=== PATIENT | male | born 1935 | race Caucasian/White ===

== ENCOUNTER 2016-03-04 10:06 | Day surgery (SDC) | payer BC, MEDICARE, OTHER ==
[2016-02-22 09:23] VITALS: BMI 32.0
--- NOTE | 2016-02-22 09:58 | PAT Medication Instructions ---
Service Date Feb 22, 2016. Current Home Medication List Acetaminophen (Tylenol), 1,000 MG PO PRN Aflibercept (Eylea), 1 DOSE INH Q12WK Albuterol (Ventolin), 2 PUFFS INH QID PRN for SOB/Wheezing Azelastine Hcl-Fluticasone Pro (Dymista), 1 SPRY KENYA BID Calcium/Vitamin D (Os-Andrei 500 Plus D), 1 TAB PO QAM Citalopram (Celexa *), 40 MG PO QAM Eye Drops (Eye Drops), 1 DROP OPB PRN Ferrous Gluconate (Iron Supplement), 27 MG PO QAM Fexofenadine Hcl (Tarsha Allergy), 1 TAB PO PRN Fluticasone Prop/Salmeterol (Advair Diskus 250/50 60 Dose), 1 PUFF INH BID Fluticasone Propionate (Flonase Nasal Royal *), 2 SPRAYS KENYA QAM Hydrocodone/Acetaminophen 5MG/325MG (Sweet 5MG/325MG), 0.5 TAB PO PRN PRN for Pain Ocuvite Preservision (Ocuvite Preservision), 1 TAB PO BID Omeprazole (Prilosec), 20 MG OR QAM Sildenafil Citrate (Viagra), 100 MG PO PRN Simvastatin (Zocor), 20 MG PO HS Medication Instructions For Your Scheduled Surgery - Continue as usual: Aflibercept (Eylea), 1 DOSE INH Q12WK - Hold the following medications the morning of surgery: Sildenafil Citrate (Viagra), 100 MG PO PRN Ocuvite Preservision (Ocuvite Preservision), 1 TAB PO BID Fexofenadine Hcl (Tarsha Allergy), 1 TAB PO PRN Ferrous Gluconate (Iron Supplement), 27 MG PO QAM Calcium/Vitamin D (Os-Andrei 500 Plus D), 1 TAB PO QAM - Take the following medications the morning of surgery with a sip of water: Omeprazole (Prilosec), 20 MG OR QAM Fluticasone Prop/Salmeterol (Advair Diskus 250/50 60 Dose), 1 PUFF INH BID Fluticasone Propionate (Flonase Nasal [place] *), 2 SPRAYS KENYA QAM Eye Drops (Eye Drops), 1 DROP OPB PRN (if needed) Citalopram (Celexa *), 40 MG PO QAM Albuterol (Ventolin), 2 PUFFS INH QID PRN for SOB/Wheezing (bring with you to hospital morning of surgery) Azelastine Hcl-Fluticasone Pro (Dymista), 1 SPRY KENYA BID Acetaminophen (Tylenol), 1,000 MG PO PRN (if needed) Hydrocodone/Acetaminophen 5MG/325MG (Sweet 5MG/325MG), 0.5 TAB PO PRN PRN for Pain (okay to take up to 4 hours prior to surgery if needed) - Take the following medications as scheduled the night before surgery: Sildenafil Citrate (Viagra), 100 MG PO PRN (if needed) Simvastatin (Zocor), 20 MG PO HS Ocuvite Preservision (Ocuvite Preservision), 1 TAB PO BID Fluticasone Prop/Salmeterol (Advair Diskus 250/50 60 Dose), 1 PUFF INH BID Fexofenadine Hcl (Tarsha Allergy), 1 TAB PO PRN (if needed) Eye Drops (Eye Drops), 1 DROP OPB PRN (if needed) Albuterol (Ventolin), 2 PUFFS INH QID PRN for SOB/Wheezing (if needed) Azelastine Hcl-Fluticasone Pro (Dymista), 1 SPRY KENYA BID Acetaminophen (Tylenol), 1,000 MG PO PRN (if needed) Hydrocodone/Acetaminophen 5MG/325MG (Sweet 5MG/325MG), 0.5 TAB PO PRN PRN for Pain (if needed) If you have any questions please call us at [phone] (Anabella Orellana PA-C) or [phone] or [phone]
[2016-02-22 10:44] LABS: BASO % 0.4 %; BASO ABS # 0.02 K/uL (0-0.2); COMPLETE YES; EOS % 3.4 %; HEMATOCRIT 37.4 % (42-52); IG% 0.2 %; LYMPH % 27.9 %; LYMPH ABS # 1.47 K/uL (1.2-3.4); MEAN CELL VOLUME 92.1 fL (80-100); MEAN CORPUSCULAR HEMOGLOBIN 32.8 pg (25-34); MEAN CORPUSCULAR HGB CONC 35.6 g/dl (32-36); MONO % 13.1 %; PLATELET COUNT 194 K/uL (130-400); RED BLOOD COUNT 4.06 M/uL (4.7-6.1); WHITE BLOOD COUNT 5.27 K/uL (4.8-10.8)
[2016-02-22 10:50] LABS: URINE APPEARANCE CLEAR (CLEAR); URINE BILIRUBIN NEG (NEG); URINE COLOR YELLOW; URINE NITRITE NEG (NEG); URINE SPECIFIC GRAVITY 1.016 (1.000-1.030); UROBILINOGEN NEG (NEG)
[2016-02-22 11:05] LABS: MANUAL MICROSCOPIC REQUIRED? NO; REVIEW REQ? NO
[2016-02-22 11:40] LABS: CALCIUM 8.9 mg/dl (8.5-10.1); CREATININE 0.75 mg/dl (0.60-1.40)
[~2016-03-04] VITALS: Ht 180.3 cm; Wt 106.5 kg
[~2016-03-04 10:06] MED LIST: ACET-1256 PO; ADVIN25/60 INH; AFLI2INJ INH; ALBUAER2 INH; AZEL30SP NAE; CALC500C70 PO; CLX20 PO; EYED OPB; FEXO1TAB49 PO; FLNIN NAE; FRRG27 PO; GENTAMICIN INJ 80 MG in DEXTROSE 5% 100ML 100 ML IV SCH; GENTAMICIN SULFATE 40 MG/ML IV SCH; HYDR-5688 PO; LACTATED RINGER'S 1000ML 1,000 ML IV SCH; MULT-190 PO; OMEP20CA9 OR; SILD100T PO; SIMV20TA5 PO
[2016-03-04 10:25] VITALS: BP 145/77; PULSE 64; TEMP 36.4; O2SAT 95; Ht 180.3 cm; Wt 106.5 kg
[2016-03-04] MEDS ORDERED: LIDOCAINE HCL 2% 2 ML VIAL (20MG/ML) ONE (10:53)
[2016-03-04] MEDS ORDERED: FENTANYL CITRATE INJ 50 MCG/1 ML 2 ML VIAL ONE (10:53)
[2016-03-04] MEDS ORDERED: ONDANSETRON INJ 2 MG/ML 2 ML VIAL ONE ×2 (10:53→12:06)
[2016-03-04] MEDS ORDERED: PROPOFOL IV EMULSION 10 MG/ML 20 ML VIAL IV ONE (10:53)
--- NOTE | 2016-03-04 11:40 | History & Physical Bridge Note ---
H&P Re-Evaluation Bridge Note: I have examined the patient, reviewed the History & Physical and in the interval since the performance of the History & Physical I have noted the following changes of clinical significance: No changes noted
[2016-03-04] MEDS ORDERED: EpHEDrine SULFATE INJ 50 MG/ML AMP ONE (12:14)
--- NOTE | 2016-03-04 13:01 | [facility] Post Operative Brief Note ---
Immediate Operative Summary Operative Date Mar 04, 2016. Pre-Operative Diagnosis Lower urinary tract symptoms secondary to obstruction from prostate Post-Operative Diagnosis Lower urinary tract symptoms secondary to obstruction from prostate Procedure(s) Performed Button Transurethral Resection Prostate Surgeon Dr. Baltazar Cadena Microsoft Crm Developer Surgeon(s) None Estimated Blood Loss 2mL Findings obstructing prostate Specimens None per surgeon Drains 20 f hrer
[2016-03-04] MEDS ORDERED: DOCU-94 PO (13:03)
[2016-03-04] MEDS ORDERED: PHEN-876 PO (13:03)
[2016-03-04] MEDS ORDERED: NITR-5 PO (13:03)
[2016-03-04] MEDS ORDERED: OXYC-57 PO (13:03)
--- NOTE | 2016-03-04 13:04 | Discharge Instructions ---
Discharge Instructions Visit Reason for Visit: Benign Prostatic Hypertrophy Discharge Discharge Diagnosis / Problem: BPH Discharge Goals Goal(s): Therapeutic intervention Activity Recommendations Activity Limitations: resume your previous activity (take it easy until folely is removed) Anesthesia . Post Anesthesia Instructions: If you have had General Anesthesia or IV Sedation: * Do not drive today. * Resume driving when surgeon permits. * Do not make important decisions or sign legal documents today. * Call surgeon for: 1. Temperature elevations greater than 101 degrees F. 2. Uncontrollable pain. 3. Excessive bleeding. 4. Persistent nausea and vomiting. 5. Medication intolerance (nausea, vomiting or rash). * For nausea and vomiting use only clear liquids such as: tea, soda, bouillon until nausea subsides, then gradually increase diet as tolerated. * If you have any concerns or questions, call your surgeon's office. If physician is unavailable and it is an emergency, call 911 or go to the nearest emergency room. . Diet Recommendations Recommended Home Diet: resume previous diet Procedures Procedures Performed: Button Transurethral Resection Prostate Pending Studies Studies pending at discharge: no Medical Emergencies . Who to Call and When: Medical Emergencies: If at any time you feel your situation is an emergency, please call 911 immediately. . Non-Emergent Contact Non-Emergency issues call your: Urologist . . "Provider Documentation" section prepared by Baltazar Cadena. [place] Drug Monitoring Program Search Results: patient reviewed within database
[2016-03-04] MEDS ORDERED: ATROPINE SULFATE 0.1 MG/ML 5ML SYR IV PRN (13:15)
[2016-03-04] MEDS ORDERED: OXYCODONE/ACETAMINOPHEN 5-325 TAB PO PRN (13:15)
[2016-03-04] MEDS ORDERED: EpHEDrine SULFATE INJ 50 MG/ML AMP IV PRN (13:15)
[2016-03-04 13:45] VITALS: BP 140/79; PULSE 76; TEMP 36.7; O2SAT 97
--- NOTE | 2016-03-04 13:56 | Anesthesiology Progress Note ---
Anesthesia Post Op Note Date & Time Mar 04, 2016 at 13:55 Vital Signs Pain Intensity: 2 Vital Signs Past 12 Hours Date Time Temp Pulse Resp B/P Pulse Ox O2 Delivery O2 Flow Rate FiO2 03/04/16 13:40 36.4 76 17 131/89 95 Room Air 03/04/16 13:30 78 24 108/68 96 Room Air 03/04/16 13:20 78 12 142/127 100 Mask 10 03/04/16 13:10 75 16 131/78 100 Mask 10 03/04/16 13:01 36.3 76 23 174/109 100 Mask 10 144/80 03/04/16 10:25 36.4 64 18 145/77 95 Room Air Notes Mental Status: alert / awake / arousable, participated in evaluation Pt Amnestic to Procedure: Yes Nausea / Vomiting: adequately controlled Pain: adequately controlled Airway Patency, RR, SpO2: stable & adequate BP & HR: stable & adequate Hydration State: stable & adequate Anesthetic Complications: no major complications apparent
[2016-03-04 14:15] VITALS: BP 145/80; PULSE 77; TEMP 36.4; O2SAT 97
[2016-03-04 14:45] VITALS: BP 171/91; PULSE 86; TEMP 36.6; O2SAT 96
--- NOTE | 2016-03-06 16:57 | OPERATIVE REPORT ---
DATE OF OPERATION: 03/04/2016 PREOPERATIVE DIAGNOSIS: Lower urinary tract symptoms secondary to prostatic obstruction. POSTOPERATIVE DIAGNOSIS: Same. PROCEDURE: Cystoscopy and transurethral vaporization of the prostate. FINDINGS: Cystoscopic exam revealed normal urethra. Bladder showed normal anterior urethra, prostatic fossa was post of a GreenLight laser, but there was lot of recurrent growth, especially on the anterior surface of the prostate. Bladder showed 1-2+ trabeculation with cellules. There were no tumors seen. Both ureteral orifices were effluxing clear urine. SURGEON: Dr. Cadena. ANESTHESIA: General. DRAINS: 20-Frisian Nowak catheter in bladder. COMPLICATIONS: None. SPECIMENS: None. INDICATIONS: The patient is a 80-year-old white male, who is having lower urinary tract symptoms. He failed medical therapy and is being brought in for prostate vaporization. PROCEDURE: After the induction with adequate general anesthetic and appropriate time-out, the patient's lower abdomen and genitalia were prepped with Hibiclens, draped in a sterile fashion. Using a 22-Frisian cystoscope, routine cystoscopic exam was performed with the above noted findings with the 30 and 70 degree lenses. Next, using a 24-Frisian resection scope and prostate vaporization button, the prostatic adenoma was vaporized from the bladder neck to the verumontanum from 1 o'clock to 6 o'clock clockwise and 11 o'clock to 6 o'clock counter clockwise. There was a fair amount of tissue on the anterior surface. This was also vaporized, which I believe was causing most of his obstructive symptoms. After creating a wide open prostatic channel any bleeding points were electrocoagulated. Final view from the ____ revealed a wide open prostatic fossa with minimal venous oozing. Bladder was then filled. Resection scope and sheath removed. The patient voided with a good stream on Crede maneuver. A 20-Frisian Nowak catheter inserted per urethra into the bladder and hooked to gravity drainage. All needle, sponge and instrument counts were correct at the end of the case. The patient tolerated the procedure well and went to the recovery room in stable condition. I attest to the content of the Intraoperative Record and any orders documented therein. Any exceptio ns are noted below.
[2016-05-07] MEDS ORDERED: FERROUS SULFATE PO (12:51)
[2016-05-07] MEDS ORDERED: ALBUTEROL NEB INH (12:51)
[2016-05-07] MEDS ORDERED: ASPI81TA28 PO (12:51)
[2016-05-07] MEDS ORDERED: HYDR25SU6 RE (12:51)
[2016-05-07] MEDS ORDERED: PSYL0.524 PO (12:51)
== END 2016-03-04 14:55 | disposition home or self-care (01) ==
LOC: C.ACU 10:06
PROVIDERS: ATTEND Urology
DX: N40.1 Benign prostatic hyperplasia with lower urinary tract symptoms (principal); N13.8 Other obstructive and reflux uropathy; R33.9 Retention of urine, unspecified; N52.9 Male erectile dysfunction, unspecified; E78.00 Pure hypercholesterolemia, unspecified; Z87.891 Personal history of nicotine dependence

== ENCOUNTER 2016-05-20 08:36 | Day surgery (SDC) | payer BC, MEDICARE ==
[2016-05-07 12:53] VITALS: BMI 32.0
--- NOTE | 2016-05-07 13:15 | PAT Medication Instructions ---
Service Date May 07, 2016. Current Home Medication List Acetaminophen (Tylenol), 1,000 MG PO PRN Aflibercept (Eylea), 1 DOSE INH Q12WK Aspirin (Aspirin Ec), 81 MG PO QAM Azelastine Hcl-Fluticasone Pro (Dymista), 1 SPRY KENYA BID Calcium/Vitamin D (Os-Andrie 500 Plus D), 1 TAB PO QAM Citalopram (Celexa *), 40 MG PO QAM Eye Drops (Eye Drops), 1 DROP OPB PRN Fexofenadine Hcl (Tarsha Allergy), 1 TAB PO PRN Fluticasone Prop/Salmeterol (Advair Diskus 250/50 60 Dose), 1 PUFF INH BID Fluticasone Propionate (Flonase Nasal [place] *), 2 SPRAYS KENYA QAM Hydrocodone/Acetaminophen 5MG/325MG (Graham 5MG/325MG), 0.5 TAB PO PRN PRN for Pain Hydrocortisone Acetate (Rectal (Anucort-Hc), 25 MG RE PRN Ocuvite Preservision (Ocuvite Preservision), 1 TAB PO BID Omeprazole (Prilosec), 20 MG OR QAM Psyllium (Metamucil), 1 DOSE PO HS Sildenafil Citrate (Viagra), 100 MG PO PRN Simvastatin (Zocor), 20 MG PO HS [Albuterol Neb], 1 DOSE INH PRN [Ferrous Sulfate], 65 MG PO QAM Medication Instructions For Your Scheduled Surgery - Check with prescribing doctor for instructions: Aflibercept (Eylea), 1 DOSE INH Q12WK (next injection planned for after surgery) - Check with surgeon for instructions: Aspirin (Aspirin Ec), 81 MG PO QAM - Hold the following medications the morning of surgery: [Ferrous Sulfate], 65 MG PO QAM Sildenafil Citrate (Viagra), 100 MG PO PRN Ocuvite Preservision (Ocuvite Preservision), 1 TAB PO BID Hydrocortisone Acetate (Rectal (Anucort-Hc), 25 MG RE PRN Fexofenadine Hcl (Tarsha Allergy), 1 TAB PO PRN Calcium/Vitamin D (Os-Andrei 500 Plus D), 1 TAB PO QAM - Take the following medications the morning of surgery with a sip of water: [Albuterol Neb], 1 DOSE INH PRN Omeprazole (Prilosec), 20 MG OR QAM Fluticasone Propionate (Flonase Nasal [place] *), 2 SPRAYS KENYA QAM Fluticasone Prop/Salmeterol (Advair Diskus 250/50 60 Dose), 1 PUFF INH BID Eye Drops (Eye Drops), 1 DROP OPB PRN Citalopram (Celexa *), 40 MG PO QAM Acetaminophen (Tylenol), 1,000 MG PO PRN Hydrocodone/Acetaminophen 5MG/325MG (Graham 5MG/325MG), 0.5 TAB PO PRN PRN for Pain (okay to take up to 4 hours prior to surgery if needed) Azelastine Hcl-Fluticasone Pro (Dymista), 1 SPRY KENYA BID - Take the following medications as scheduled the night before surgery: [Albuterol Neb], 1 DOSE INH PRN Simvastatin (Zocor), 20 MG PO HS Sildenafil Citrate (Viagra), 100 MG PO PRN Psyllium (Metamucil), 1 DOSE PO HS Ocuvite Preservision (Ocuvite Preservision), 1 TAB PO BID Hydrocortisone Acetate (Rectal (Anucort-Hc), 25 MG RE PRN Fluticasone Prop/Salmeterol (Advair Diskus 250/50 60 Dose), 1 PUFF INH BID Fexofenadine Hcl (Tarsha Allergy), 1 TAB PO PRN Eye Drops (Eye Drops), 1 DROP OPB PRN Acetaminophen (Tylenol), 1,000 MG PO PRN Hydrocodone/Acetaminophen 5MG/325MG (Graham 5MG/325MG), 0.5 TAB PO PRN PRN for Pain Azelastine Hcl-Fluticasone Pro (Dymista), 1 SPRY KENYA BID If you have any questions please call us at [phone] (Anabella Orellana PA-C) or [phone] or [phone]
[~2016-05-20] VITALS: Ht 180.3 cm; Wt 103.9 kg
[~2016-05-20 08:36] MED LIST changes: -ALBUAER2 INH; +ALBUTEROL NEB INH; +ASPI81TA28 PO; +CEFAZOLIN 2000 MG/60 ML D5W IV SCH; +FERROUS SULFATE PO; -FRRG27 PO; -GENTAMICIN INJ 80 MG in DEXTROSE 5% 100ML 100 ML IV SCH; -GENTAMICIN SULFATE 40 MG/ML IV SCH; +HYDR25SU6 RE; +PSYL0.524 PO
[2016-05-20 09:19] VITALS: BP 137/75; PULSE 62; TEMP 37; O2SAT 96; Ht 180.3 cm; Wt 103.9 kg
[2016-05-20] MEDS ORDERED: CEFAZOLIN SOD 1 GM VIAL ONE (12:01)
[2016-05-20] MEDS ORDERED: HEPARIN SOD (PORCINE) 1000 UNIT/ML 10 ML VIAL ONE (12:01)
[2016-05-20] MEDS ORDERED: BUPIVACAINE 0.5 % 5 MG/1 ML MPF 30ML VIAL ONE (12:02)
[2016-05-20] MEDS ORDERED: MIDAZOLAM HCL 1 MG/ML 2ML VIAL ONE (12:04)
[2016-05-20] MEDS ORDERED: FENTANYL CITRATE INJ 50 MCG/1 ML 2 ML VIAL ONE ×2 (12:05→13:01)
[2016-05-20] MEDS ORDERED: GLYCOPYRROLATE INJ 0.2 MG/ML VIAL ONE ×2 (12:41→12:51)
[2016-05-20] MEDS ORDERED: PHENYLEPHRINE 100MCG/ML 5ML SYR ONE (12:41)
[2016-05-20] MEDS ORDERED: PROPOFOL IV EMULSION 10 MG/ML 20 ML VIAL IV ONE (12:41)
[2016-05-20] MEDS ORDERED: EpHEDrine SULFATE 50MG/5ML SYR ONE (12:41)
[2016-05-20] MEDS ORDERED: LIDOCAINE HCL 2% 2 ML VIAL (20MG/ML) ONE (12:41)
[2016-05-20] MEDS ORDERED: ROCURONIUM BROMIDE 10 MG/ML 5 ML VIAL ONE (12:41)
[2016-05-20] MEDS ORDERED: NEOSTIGMINE METHYLSULFATE 5 MG/5 ML SYR ONE (12:41)
[2016-05-20] MEDS ORDERED: ONDANSETRON INJ 2 MG/ML 2 ML VIAL ONE (12:41)
[2016-05-20] MEDS ORDERED: DEXAMETHASONE SOD INJ 4 MG/ML VIAL ONE (12:41)
[2016-05-20] MEDS ORDERED: ESMOLOL HCL 10 MG/ML 10 ML VIAL ONE (12:59)
[2016-05-20] MEDS ORDERED: FLOSEAL HEMOSTATIC MATRIX 10ML TOP ONE (13:08)
[2016-05-20] MEDS ORDERED: HydrALAZINE HCL 20 MG/ML VIAL ONE (13:22)
[2016-05-20] MEDS ORDERED: MoRPHine SULFATE 4 MG/ML 1 ML CARP\\VIAL IV PRN (13:30)
[2016-05-20] MEDS ORDERED: ONDANSETRON INJ 2 MG/ML 2 ML VIAL IV PRN ×2 (13:30→13:45)
[2016-05-20] MEDS ORDERED: SODIUM CHLORIDE 0.9% 1000ML 1,000 ML IV SCH (13:30)
[2016-05-20] MEDS ORDERED: OXYCODONE/ACETAMINOPHEN 5-325 TAB PO PRN (13:30)
--- NOTE | 2016-05-20 13:30 | [facility] Post Operative Brief Note ---
Immediate Operative Summary Operative Date May 20, 2016. Pre-Operative Diagnosis Symptomatic Cholelithiasis Post-Operative Diagnosis Symptomatic Cholelithiasis Procedure(s) Performed Laparoscopic Cholecystectomy Surgeon Dr. Powell Chemical Production Machine Operator Surgeon(s) none Estimated Blood Loss 10 ML Findings See dictation Specimens A. Gallbladder Drains None Anesthesia General Complication(s) None Disposition Recovery Room / PACU
--- NOTE | 2016-05-20 13:34 | Discharge Instructions ---
Discharge Instructions Date of Service May 20, 2016. Admission Reason for Admission: Ruq Abdominal Pain, Cholelithiasis, Gallbladder Sl Discharge Discharge Diagnosis / Problem: Same Discharge Goals Goal(s): Decrease discomfort Activity Recommendations Activity Limitations: per Instructions/Follow-up section Lifting Limitations: no more than 10 pounds (for at least 2 weeks) Shower/Bathe: tomorrow (Shower only) . Instructions / Follow-Up Instructions / Follow-Up Post-Surgical ~ Discharge Instructions Activity Recommendations: - lifting limitation: (10 pounds for 2 weeks), - exercise/sex/sports limit: (nonstrenuous for 2 weeks), - driving or machine use limit: (none for 1 week), - Shower/bathe limit: (may shower beginning tomorrow) Diet: - Resume previous diet SPECIAL CARE INSTRUCTIONS: - May shower in 24 hours. Let water run over area and pat dry. - Leave steri strips on for one week. - Call the surgeon's office with any questions or concerns - - (ex. temperature higher than 101 degrees F, excessive bleeding or pain). MEDICATIONS: - Resume previous medications unless instructed otherwise by your surgeon. - Ibuprofen 600 mg every 6 hours with food - Hydrocodone/acetaminophen 1 every 4 hours, as needed for pain FOLLOW UP VISIT: - If not already scheduled, please call the office to schedule a two week follow-up appointment. Office number Current Hospital Diet Patient's current hospital diet: Discharge Diet Recommended Diet: Regular Diet Procedures Procedures Performed: Laparoscopic Cholecystectomy Pending Studies Studies pending at discharge: no Medical Emergencies . Who to Call and When: Medical Emergencies: If at any time you feel your situation is an emergency, please call 911 immediately. . Non-Emergent Contact Non-Emergency issues call your: Primary Care Provider, Surgeon Call Non-Emergent contact if: your pain is worsening, wound has increased drainage, wound has increased redness . "Provider Documentation" section prepared by Vu Powell. VTE Core Measure Inpt VTE Proph given/why not?: Treatment not indicated
[2016-05-20] MEDS ORDERED: ATROPINE SULFATE 0.1 MG/ML 5ML SYR IV PRN (13:45)
[2016-05-20] MEDS ORDERED: EpHEDrine SULFATE INJ 50 MG/ML AMP IV PRN (13:45)
[2016-05-20] MEDS ORDERED: NALOXONE HCL 0.4 MG/1 ML VIAL/CARP IV PRN (13:45)
[2016-05-20] MEDS ORDERED: LABETALOL HCL IV 5 MG/ML 20ML IV PRN (13:45)
[2016-05-20] MEDS ORDERED: PROMETHAZINE HCL INJ 12.5 MG in SODIUM CHLORIDE 0.9% 50ML 50 ML IV PRN (13:45)
[2016-05-20] MEDS: HYDROmorphone INJ 1 MG/ML SYR IV PRN ×8 (13:52→14:27)
--- NOTE | 2016-05-20 14:34 | Anesthesiology Progress Note ---
Anesthesia Post Op Note Date & Time May 20, 2016 at 14:33 Vital Signs Pain Intensity: 4.0 Vital Signs Past 12 Hours Date Time Temp Pulse Resp B/P Pulse Ox O2 Delivery O2 Flow Rate FiO2 05/20/16 14:25 99 16 151/81 93 Room Air 05/20/16 14:15 98 16 132/64 94 Room Air 05/20/16 14:05 97 16 141/77 94 Room Air 05/20/16 13:55 88 16 151/81 100 Mask 10 05/20/16 13:45 87 20 152/87 100 Mask 10 05/20/16 13:35 36.9 84 18 168/92 100 Mask 10 05/20/16 09:19 37 62 20 137/75 96 Room Air Notes Mental Status: alert / awake / arousable, participated in evaluation Pt Amnestic to Procedure: Yes Nausea / Vomiting: adequately controlled Pain: adequately controlled Airway Patency, RR, SpO2: stable & adequate BP & HR: stable & adequate Hydration State: stable & adequate Anesthetic Complications: no major complications apparent
[2016-05-20 14:55] VITALS: BP 154/72; PULSE 99; TEMP 36.8; O2SAT 92
--- NOTE | 2016-05-20 15:24 | OPERATIVE REPORT ---
DATE OF OPERATION: 05/20/2016 PREOPERATIVE DIAGNOSES: Cholelithiasis, chronic cholecystitis. POSTOPERATIVE DIAGNOSIS: Same. PROCEDURE: Laparoscopic cholecystectomy. SURGEON: Dr. Powell. FINDINGS: The gallbladder was not dilated. There were multiple small black stones within its lumen. The cystic duct was not dilated. The liver was firm, but there was no nodularity. The visible bowel appeared normal. TECHNIQUE: The patient was given a general anesthetic and the area was prepped and draped in usual sterile fashion. Transverse incision was made below the umbilicus, carried down through the subcutaneous tissue to the fascia which was grasped with 2 Low clamps and incised between. The peritoneum was identified, incised, and the introducer was placed bluntly. The abdomen was then insufflated to a pressure of 15 mmHg with carbon dioxide. The upper midline, mid clavicular and anterior axillary introducers were placed under direct vision through small skin incisions. Traction was placed on the gallbladder and on the lateral side of the infundibulum, the peritoneum was opened and peeled down towards the common bile duct. A similar dissection anteriorly into the triangle of Calot opening the triangle of Calot. The infundibulum was dissected away from the liver first on the lateral side and then on the medial side. That allowed better mobility. That allowed me to then identify the cystic duct and peel connective tissue and lymphatics away, isolating the anterior surface. A dissection in a similar that was carried on the lateral, medial and posterior sides until I was able to establish a plane behind the cystic duct which allowed me to confidently identify the cystic duct gallbladder junction. Three clips were placed on the proximal cystic duct, one near the gallbladder and it was divided. Further dissection was then carried out in the triangle of Calot and the cystic artery was identified. Two clips were placed proximally, one near the gallbladder and it was divided. There was a small branch behind that that was clipped as well. Gallbladder was then peeled off the liver bed. In doing so, one of the graspers created a hole. There was some bile spillage and some of the stones did escape, but the gallbladder was able to peel off the liver bed with ease. It was placed into an Endobag and brought out through the upper midline incision. The subdiaphragmatic and subhepatic spaces were irrigated and the irrigation removed and that was repeated until the return was clear. Any stones that were within the abdominal cavity were removed using the larger suction. There were no further stones seen. Further irrigation was performed and then was removed. The gallbladder bed of the liver was inspected. There was some mild oozing from there that was easily controlled with cautery. That area was irrigated and there was no further bleeding. The previously placed clips were inspected and were intact. Some FloSeal was placed in the gallbladder bed of the liver. The gas was allowed to escape and the introducers were removed. The fascia of the umbilical and upper midline introducer sites was closed with interrupted 0 Vicryl. The skin of all the incisions was closed with 4-0 Monocryl in either an interrupted or running subcuticular fashion. The skin was anesthetized with 0.5% Marcaine. The skin was cleansed, dried, benzoin placed, Steri-Strips applied. Estimated blood loss was 10 mL. Sponge, needle and instrument counts were correct prior to closure. The patient tolerated surgical procedure without complication and was transferred to recovery. I attest to the content of the Intraoperative Record and any orders documented therein. Any exceptio ns are noted below.
[2016-05-20 15:25] VITALS: BP 139/75; PULSE 102; TEMP 36.6; O2SAT 91
[2016-05-20 16:09] VITALS: BP 140/74; PULSE 101; TEMP 36.5; O2SAT 94
== END 2016-05-20 16:35 | disposition home or self-care (01) ==
LOC: C.ACU 08:36
PROVIDERS: ATTEND Surgery
DX: K80.10 Calculus of gallbladder with chronic cholecystitis without obstruction (principal); I10 Essential (primary) hypertension; J45.909 Unspecified asthma, uncomplicated; E78.5 Hyperlipidemia, unspecified; H40.9 Unspecified glaucoma; E66.9 Obesity, unspecified; Z98.41 Cataract extraction status, right eye; Z98.42 Cataract extraction status, left eye; Z87.891 Personal history of nicotine dependence; Z68.32 Body mass index [BMI] 32.0-32.9, adult; Z79.82 Long term (current) use of aspirin; Z88.1 Allergy status to other antibiotic agents; Z90.89 Acquired absence of other organs; Z98.890 Other specified postprocedural states

== ENCOUNTER 2022-02-15 10:21 | Observation (INO) ==
--- NOTE | 2021-11-29 09:06 | PAT Medication Instructions ---
Medication Instructions Date of Service November 29, 2021 Home Medications Medication Instructions Recorded sildenafil 100 mg tablet 100 mg PO ONCE PRN sexual activity 04/05/20 #12 tabs aflibercept 2 mg/0.05 mL intravitreal solution for injection (Eylea) 2 mg intravitreal UD albuterol sulfate 2.5 mg/3 mL (0.083 %) solution for nebulization 2.5 mg inhalation UD PRN azelastine-fluticasone 137 mcg-50 mcg/spray nasal spray (Dymista) 1 spray intranasal BID citalopram 40 mg tablet (Celexa) 40 mg PO QAM fluticasone 500 mcg-salmeterol 50 mcg/dose blistr powdr for inhalation 1 puff inhalation BID fluticasone propionate 50 mcg/actuation nasal spray,suspension (Flonase Allergy Relief) 2 spray intranasal QAM hydrocodone 5 mg-acetaminophen 325 mg tablet 0.5 tab PO HS hydrocortisone acetate 25 mg rectal suppository (Anucort-HC) 25 mg KS HS PRN omeprazole 20 mg capsule,delayed release 20 mg PO QAM psyllium husk 3.4 gram/5.4 gram oral powder (Metamucil) 1 tbsp PO HS PRN simvastatin 20 mg tablet (Zocor) 20 mg PO HS vit C 250 mg-vit E 90 mg-zinc 40 mg-copper 1 jz-[id number]-rpides capsule 1 tab PO BID sildenafil 100 mg tablet 100 mg PO ONCE PRN vitamin B complex (B Complex-Vitamin B12 tablet) 1 tab PO QPM gabapentin 300 mg capsule 300 mg PO TID albuterol sulfate 90 mcg/actuation aerosol inhaler 1 inh inhalation QID PRN brinzolamide 1 % eye drops,suspension (Azopt) 1 drp OPB BID buspirone 5 mg tablet 5 mg PO DAILY PRN cyclosporine 0.09 % eye drops in a dropperette (Cequa) 1 drp ophthalmic (eye) Q12H PRN fluticasone 100 mcg-salmeterol 50 mcg/dose blistr powdr for inhalation (Wixela Inhub) 1 inh inhalation BID levocetirizine 5 mg tablet 5 mg PO DAILY PRN losartan 25 mg tablet 25 mg PO QAM meloxicam 7.5 mg tablet 7.5 mg PO HS ASK your surgeon for instructions meloxicam 7.5 mg tablet 7.5 mg PO HS ASK your prescriber and surgeon aflibercept 2 mg/0.05 mL intravitreal solution for injection (Eylea) 2 mg intravitreal UD STOP taking 24 hours before surgery sildenafil 100 mg tablet 100 mg PO ONCE PRN DO NOT take the morning of surgery vit C 250 mg-vit E 90 mg-zinc 40 mg-copper 1 tq-asjaup-mbetto capsule 1 tab PO BID levocetirizine 5 mg tablet 5 mg PO DAILY PRN losartan 25 mg tablet 25 mg PO QAM Take morning of surgery With a small sip of water, OTHERWISE NOTHING TO EAT OR DRINK AFTER MIDNIGHT: albuterol sulfate 2.5 mg/3 mL (0.083 %) solution for nebulization 2.5 mg inhalat ion UD PRN(if needed) azelastine-fluticasone 137 mcg-50 mcg/spray nasal spray (Dymista) 1 spray intranasal BID citalopram 40 mg tablet (Celexa) 40 mg PO QAM fluticasone 500 mcg-salmeterol 50 mcg/dose blistr powdr for inhalation 1 puff inhalation BID fluticasone propionate 50 mcg/actuation nasal spray,suspension (Flonase Allergy Relief) 2 spray intranasal QAM omeprazole 20 mg capsule,delayed release 20 mg PO QAM gabapentin 300 mg capsule 300 mg PO TID albuterol sulfate 90 mcg/actuation aerosol inhaler 1 inh inhalation QID PRN(use if needed; please bring with you to hospital day of surgery if possible) brinzolamide 1 % eye drops,suspension (Azopt) 1 drp OPB BID buspirone 5 mg tablet 5 mg PO DAILY PRN(if needed) cyclosporine 0.09 % eye drops in a dropperette (Cequa) 1 drp ophthalmic (eye) Q12H PRN(if needed) fluticasone 100 mcg-salmeterol 50 mcg/dose blistr powdr for inhalation (Wixela Inhub) 1 inh inhalation BID Take evening before surgery azelastine-fluticasone 137 mcg-50 mcg/spray nasal spray (Dymista) 1 spray intranasal BID fluticasone 500 mcg-salmeterol 50 mcg/dose blistr powdr for inhalation 1 puff inhalation BID hydrocodone 5 mg-acetaminophen 325 mg tablet 0.5 tab PO HS hydrocortisone acetate 25 mg rectal suppository (Anucort-HC) 25 mg KS HS PRN(if needed) psyllium husk 3.4 gram/5.4 gram oral powder (Metamucil) 1 tbsp PO HS PRN(if needed) vit C 250 mg-vit E 90 mg-zinc 40 mg-copper 1 xy-arptcj-ypnkib capsule 1 tab PO BID simvastatin 20 mg tablet (Zocor) 20 mg PO HS vitamin B complex (B Complex-Vitamin B12 tablet) 1 tab PO QPM gabapentin 300 mg capsule 300 mg PO TID albuterol sulfate 90 mcg/actuation aerosol inhaler 1 inh inhalation QID PRN(if needed) brinzolamide 1 % eye drops,suspension (Azopt) 1 drp OPB BID cyclosporine 0.09 % eye drops in a dropperette (Cequa) 1 drp ophthalmic (eye) Q12H PRN(if needed) fluticasone 100 mcg-salmeterol 50 mcg/dose blistr powdr for inhalation (Wixela Inhub) 1 inh inhalation BID Other Notes If you have any questions please call us at [phone] or [phone] or [phone] or [phone]
--- NOTE | 2021-12-03 13:27 | Anesthesiology Consultation ---
Date of Service December 03, 2021 Assessment & Plan (1) Encounter for pre-operative examination: - COVID screening: Per assessment on 12/03: No known COVID-19 positive contacts or current COVID-19 related symptoms. Travel screen negative. Patient vaccinated. At surgeon discretion if preop Covid testing being done. - Outpatient joint assessment: Pt currently scheduled for inpatient pathway. If surgeon requests review for outpatient joint pathway, patient is not recommended candidate for outpatient joint program from anesthesia standpoint. - Cardiology office visit (08/28/21): "He states that his chest discomfort started earlier this year when he was walking up an incline to attend his grandson's [employer] graduation. Ever since then, he states he has been having constant substernal chest pressure along his left sternal border. He notes that is worse with specific movements and deep inhalation. He has already tried increasing his treatments for GERD and asthma without any improvement. He denies any of the other associated symptoms and states otherwise he feels well. He notes that this discomfort is similar to his previous cardiac consultation in 2018 which at that time his stress echocardiogram was nonischemic.. The pathophysiology of his rib dysfunction was discussed with the patient his in great detail. I have given him stretching exercises to perform and instructed him on the use of a heating pad and p.r.n. analgesics over the counter. Should this not be beneficial then consideration could always be given to referral to pain management for injection. Otherwise, given his chest discomfort is completely reproducible, similar to his previous chest discomfort and I do not see any significant changes on his EKG; no further cardiac testing or intervention is necessary at this time. His blood pressure is little elevated today but he notes that he recently found out about the passing of his estranged daughter only yesterday and has been understandably upset. So I have asked him to follow-up with you [PCP] for further BP management. No cardiac follow-up will be scheduled today but he is welcome return to see us in the future should the need arise." > Patient seen at [facility] 12/03- denies chest pain or cardiopulmonary limiting complaints. Chart Review Chart Review: Acceptable Risk for Surgery and Patient seen in Pre Admission Testing Teaching & Discussion Pre-Anesthesia Teaching/Discussion Notes: Instructed NPO after midnight before surgery,except medications with 15 cc of water. Medication instructions provided according to the [facility] guidelines. History Surgery Operation Date: 10/12/21 07:00 Proposed Procedures p Left Total Shoulder Arthroplasty Tiffany Gutierrez DO Operation Date: 01/08/22 10:40 Proposed Procedures p Left Total Shoulder Arthroplasty Reverse - Christopher Gutierrez, DO Height/Weight Height: 5 ft 11 in Weight: 107.5 kg Allergies Allergy/AdvReac Type Severity Reaction Status Date / Time alfuzosin Allergy Mild FAINTING Verified 11/29/21 08:02 benzalkonium chloride Allergy Mild RASH Verified 11/29/21 08:02 bimatoprost Allergy Mild RASH Verified 11/29/21 08:02 ciprofloxacin Allergy Mild CAUSED Verified 11/29/21 08:02 "FLOATERS" VISION DISTURBANCE mold Allergy Mild ITCHY EYES Verified 11/29/21 08:02 SNEEZING ASTHMA montelukast [From Singulair] Allergy Mild Agitated Verified 11/29/21 08:02 Cipro Allergy Unknown CAUSED Verified 05/20/16 09:12 "FLOATERS" VISION DISTURBANCE sulfamethoxazole AdvReac Unknown Unknown Verified 11/29/21 08:02 [From Bactrim] trimethoprim [From Bactrim] AdvReac Unknown Unknown Verified 11/29/21 08:02 Medications Home Medications Medication Instructions Recorded Confirmed Last Taken aflibercept 2 mg/0.05 mL 2 mg intravitreal UD 12/29/17 10/08/21 12/15/17 intravitreal solution for injection (Eylea) albuterol sulfate 2.5 mg/3 mL 2.5 mg inhalation UD PRN Shortness 12/29/17 11/29/21 12/28/17 (0.083 %) solution for nebulization Of Breath Or Wheezing azelastine-fluticasone 137 mcg-50 1 spray intranasal BID 12/29/17 11/29/21 12/29/17 mcg/spray nasal spray (Dymista) citalopram 40 mg tablet (Celexa) 40 mg PO QAM 12/29/17 11/29/21 12/29/17 fluticasone 500 mcg-salmeterol 50 1 puff inhalation BID 12/29/17 11/29/21 12/29/17 mcg/dose blistr powdr for inhalation fluticasone propionate 50 2 spray intranasal QAM 12/29/17 11/29/21 12/29/17 mcg/actuation nasal spray,suspension (Flonase Allergy Relief) hydrocodone 5 mg-acetaminophen 325 0.5 tab PO HS 12/29/17 11/29/21 12/28/17 mg tablet hydrocortisone acetate 25 mg 25 mg ND HS PRN Hemorrhoids 12/29/17 11/29/21 12/27/17 rectal suppository (Anucort-HC) omeprazole 20 mg capsule,delayed 20 mg PO QAM 12/29/17 11/29/21 12/29/17 release psyllium husk 3.4 gram/5.4 gram 1 tbsp PO HS PRN Constipation 12/29/17 11/29/21 12/28/17 oral powder (Metamucil) simvastatin 20 mg tablet (Zocor) 20 mg PO HS 12/29/17 11/29/21 12/28/17 vit C 250 mg-vit E 90 mg-zinc 40 1 tab PO BID 12/29/17 11/29/21 12/29/17 mg-copper 1 [id number] capsule sildenafil 100 mg tablet 100 mg PO ONCE PRN sexual activity 04/05/20 11/29/21 Unknown #12 tabs vitamin B complex (B 1 tab PO QPM 04/10/21 11/29/21 Unknown Complex-Vitamin B12 tablet) gabapentin 300 mg capsule 300 mg PO TID 10/08/21 11/29/21 Unknown albuterol sulfate 90 mcg/actuation 1 inh inhalation QID PRN SOB 11/29/21 11/29/21 Unknown aerosol inhaler brinzolamide 1 % eye 1 drp OPB BID 11/29/21 11/29/21 Unknown drops,suspension (Azopt) buspirone 5 mg tablet 5 mg PO DAILY PRN Anxiety 11/29/21 11/29/21 Unknown cyclosporine 0.09 % eye drops in a 1 drp ophthalmic (eye) Q12H PRN 11/29/21 11/29/21 Unknown dropperette (Cequa) DRY EYE fluticasone 100 mcg-salmeterol 50 1 inh inhalation BID 11/29/21 11/29/21 Unknown mcg/dose blistr powdr for inhalation (Wixela Inhub) levocetirizine 5 mg tablet 5 mg PO DAILY PRN SEASONAL 11/29/21 11/29/21 Unknown ALLERGIES losartan 25 mg tablet 25 mg PO QAM 11/29/21 11/29/21 Unknown meloxicam 7.5 mg tablet 7.5 mg PO HS 11/29/21 11/29/21 Unknown Past Medical History Medical History Actinic keratosis Anxiety Asthma Stable GERD (gastroesophageal reflux disease) Glaucoma History of BPH HTN (hypertension) Hypercholesterolemia Obesity Sleep apnea BIPAP (compliant) Trigeminal neuralgia of right side of face Chronic right sided facial ache Exercise / Class Metabolic Activity III < 4 Walking/Shop/Light housework (one FS (no CP, + SOB)) Past Family History Family History Grandfather (Maternal) Prostate cancer Family/Other Family history of diabetes mellitus COUSIN Other No family history of adverse response to anesthesia Past Surgical History Surgical History H/O hernia repair H/O sinus surgery x2 History of cataract surgery RT/LEFT History of cholecystectomy History of colonoscopy History of esophagogastroduodenoscopy (EGD) History of prostate surgery ?TURP History of tonsillectomy History of tooth extraction History of total knee replacement RIGHT S/P ankle ligament repair LEFT Past Anesthesia History No Hx of Anesthesia Complications and No Family Hx of Anesthesia Complications History of PONV No Hx of PONV and No Hx of Motion Sickness Social History Smoking Status: Former smoker tobacco type: cigarettes Do You Dip or Chew Tobacco: No Smoking End Date: Quit 1999 Hx Alcohol Use: No substance use type: does not use and prescription drug Review of Systems Patient denies chest pain, shortness of breath, fever, chills, cough, wheezing, palpitations. Physical Exam Vital Signs VITALS BP 136/72 P 62 TEMP 98.0 SP02 97%RA RESP 16 PHYSICAL Full cervical extension range of motion. Full TMJ range of motion. TMD 4 finger breaths Mallampati Score 2 Dentition: several missing teeth, left lower side implant "start"- ? post Lungs: clear throughout to auscultation Cardiac: regular rate and rhythm, I/ systolic murmur Spine: normal Carotid arteries: negative bruit Extremities: no edema Lab Results Anesthesia Preop Results Results Anesthesia Widget: WBC 5.65 K/ul (4.8-10.8) 12/03/21 Hgb 12.7 g/dl (14.0-18.0) L 12/03/21 Hct 36.4 % (40.1-51.0) L 12/03/21 Plt 205 K/uL (130-400) 12/03/21 Na 141 mmol/L (136-145) 12/03/21 K 3.9 mmol/L (3.5-5.1) 12/03/21 Cl 108 mmol/L (98-107) H 12/03/21 CO2 26 mmol/L (21-32) 12/03/21 BUN 17 mg/dl (6-23) 12/03/21 Creat 0.73 mg/dl (0.6-1.4) 12/03/21 Glucose Level 80 mg/dl (70-99(Fasting)) 12/03/21 PT 10.7 Seconds (9.0-12.0) 12/03/21 PTT 25.8 Seconds (21.0-31.0) 12/03/21 INR 1.0 (0.9-1.1) 12/03/21 Blood Type A Positive 12/03/21 Antibody Screen NEGATIVE 12/03/21 Testing Electrocardiogram Date: 07/11/21 Normal sinus rhythm with sinus arrhythmia at 73 bpm. LAD. RBBB. 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 Chest X-Ray Date: 07/11/21 Atherosclerotic changes of the aorta are noted. No consolidations or effusion. No acute disease. Stress Test Date: 09/15/17 Type: DSE Dobutamine stress echo is negative for inducible ischemia. LVEF 55-60%. Grade 1 diastolic dysfunction. Mild AV sclerosis. Aortic valve sclerosis involves primarily the right coronary cusp. 102% MPHR. Several isolated supraventricular ectopics were noted near peak infusion. Mild MR/TR. Proximal ascending thoracic aorta is borderline enlarged. COVID-19 Risk Screen Screening Information COVID-19 Screen Date: 12/03/21 Exposure 21 Days Family/Household +COVID Last 21 Days: No Exposure 10 Days Any COVID Exposure Last 10 Days: No Symptoms Last 10 Days Experienced COVID Sx Last 10 Days: No + COVID 0-90 Days COVID + in Last 0-90 Days: No
--- NOTE | 2022-01-07 18:09 | History & Physical Report ---
Date of Service January 07, 2022 Assessment & Plan (1) Osteoarthritis of left shoulder: We will proceed with a left reverse shoulder arthroplasty. Postoperatively he will be placed in a sling and kept overnight in the hospital for postoperative medical management. He plans to use energy physical therapy upon discharge. History of Present Illness Chief Complaint: Osteoarthritis of the left shoulder. Primary Care Provider: Erik Salder DO Davis is a pleasant 86-year-old male who has been dealing with chronic worsening left shoulder pain. X-rays and clinicalexamination have been diagnostic for advanced osteoarthritis of the left shoulder. After failing extensive conservative treatment, he has elected to proceed with a left reverse shoulder arthroplasty. . Allergies Allergy/AdvReac Type Severity Reaction Status Date / Time alfuzosin Allergy Mild FAINTING Verified 11/29/21 08:02 benzalkonium chloride Allergy Mild RASH Verified 11/29/21 08:02 bimatoprost Allergy Mild RASH Verified 11/29/21 08:02 ciprofloxacin Allergy Mild CAUSED Verified 11/29/21 08:02 "FLOATERS" VISION DISTURBANCE mold Allergy Mild ITCHY EYES Verified 11/29/21 08:02 SNEEZING ASTHMA montelukast [From Singulair] Allergy Mild Agitated Verified 11/29/21 08:02 Cipro Allergy Unknown CAUSED Verified 05/20/16 09:12 "FLOATERS" VISION DISTURBANCE sulfamethoxazole AdvReac Unknown Unknown Verified 11/29/21 08:02 [From Bactrim] trimethoprim [From Bactrim] AdvReac Unknown Unknown Verified 11/29/21 08:02 Home Medications Medication Instructions Recorded Confirmed Type aflibercept 2 mg/0.05 mL 2 mg intravitreal UD 12/29/17 10/08/21 History intravitreal solution for injection (Eylea) albuterol sulfate 2.5 mg/3 mL 2.5 mg inhalation UD PRN Shortness 12/29/17 11/29/21 History (0.083 %) solution for nebulization Of Breath Or Wheezing azelastine-fluticasone 137 mcg-50 1 spray intranasal BID 12/29/17 11/29/21 History mcg/spray nasal spray (Dymista) citalopram 40 mg tablet (Celexa) 40 mg PO QAM 12/29/17 11/29/21 History fluticasone 500 mcg-salmeterol 50 1 puff inhalation BID 12/29/17 11/29/21 History mcg/dose blistr powdr for inhalation fluticasone propionate 50 2 spray intranasal QAM 12/29/17 11/29/21 History mcg/actuation nasal spray,suspension (Flonase Allergy Relief) hydrocodone 5 mg-acetaminophen 325 0.5 tab PO HS 12/29/17 11/29/21 History mg tablet hydrocortisone acetate 25 mg 25 mg CA HS PRN Hemorrhoids 12/29/17 11/29/21 History rectal suppository (Anucort-HC) omeprazole 20 mg capsule,delayed 20 mg PO QAM 12/29/17 11/29/21 History release psyllium husk 3.4 gram/5.4 gram 1 tbsp PO HS PRN Constipation 12/29/17 11/29/21 History oral powder (Metamucil) simvastatin 20 mg tablet (Zocor) 20 mg PO HS 12/29/17 11/29/21 History vit C 250 mg-vit E 90 mg-zinc 40 1 tab PO BID 12/29/17 11/29/21 History mg-copper 1 [id number] capsule sildenafil 100 mg tablet 100 mg PO ONCE PRN sexual activity 04/05/20 11/29/21 Rx #12 tabs vitamin B complex (B 1 tab PO QPM 04/10/21 11/29/21 History Complex-Vitamin B12 tablet) gabapentin 300 mg capsule 300 mg PO TID 10/08/21 11/29/21 History albuterol sulfate 90 mcg/actuation 1 inh inhalation QID PRN SOB 11/29/21 11/29/21 History aerosol inhaler brinzolamide 1 % eye 1 drp OPB BID 11/29/21 11/29/21 History drops,suspension (Azopt) buspirone 5 mg tablet 5 mg PO DAILY PRN Anxiety 11/29/21 11/29/21 History cyclosporine 0.09 % eye drops in a 1 drp ophthalmic (eye) Q12H PRN 11/29/21 11/29/21 History dropperette (Cequa) DRY EYE fluticasone 100 mcg-salmeterol 50 1 inh inhalation BID 11/29/21 11/29/21 History mcg/dose blistr powdr for inhalation (Wixela Inhub) levocetirizine 5 mg tablet 5 mg PO DAILY PRN SEASONAL 11/29/21 11/29/21 History ALLERGIES losartan 25 mg tablet 25 mg PO QAM 11/29/21 11/29/21 History meloxicam 7.5 mg tablet 7.5 mg PO HS 11/29/21 11/29/21 History Past Med/Surg History Medical History Actinic keratosis Anxiety Asthma Stable GERD (gastroesophageal reflux disease) Glaucoma History of BPH HTN (hypertension) Hypercholesterolemia Obesity Sleep apnea BIPAP (compliant) Trigeminal neuralgia of right side of face Chronic right sided facial ache Surgical History H/O hernia repair H/O sinus surgery x2 History of cataract surgery RT/LEFT History of cholecystectomy History of colonoscopy History of esophagogastroduodenoscopy (EGD) History of prostate surgery ?TURP History of tonsillectomy History of tooth extraction History of total knee replacement RIGHT S/P ankle ligament repair LEFT Family History Grandfather (Maternal) Prostate cancer Family/Other Family history of diabetes mellitus COUSIN Other No family history of adverse response to anesthesia Social History Smoking Status: Former smoker Second Hand Exposure: Yes (IN THE PAST); Hx Alcohol Use: No Preferred Language: Chinese Communication Ability: Effective Hearing Ability: Use of Hearing Aid Ceo Required: No Beliefs That Will Affect Care: None Current Living Situation: Spouse current occupational status: retired Feels Safe at Home: Yes Assistive Devices: BiPap, Glasses, Hearing Aid - Bilateral and Nebulizer Review of Systems All systems reviewed & are unremarkable except as noted in HPI & below. Physical Exam On physical examination of left shoulder, he has about 100 degrees forward elevation 60 degrees of abduction. He has crepitus throughout range of motion. He is weakness with full can testing.. Constitutional WD/WN, vitals as above Eyes PERRL, conjunctivae normal, anicteric sclerae ENMT external ear and nose normal, oropharynx normal Neck trachea midline, no thyromegaly Respiratory normal respiratory effort, lungs clear to auscultation Cardiovascular RRR, no murmur, no edema Gastrointestinal (Abdomen) normal bowel sounds, soft, nontender, no hepatosplenomegaly Skin no rashes, warm and dry Psychiatric A+Ox3, euthymic affect Results & Data Results & Data Laboratory Results . Diagnostic Findings X-rays of the left shoulder show advanced osteoarthritis with joint space narrowing, osteophyte formation, and [id number] articulation. PG Care Time/CCT Total # of Minutes Spent Total Time Spent with Patient: Total time spent is greater than 50% in coordination of care (as documented) at patient's floor/unit and/or counseling patient: Coding Level of Care Code None Diagnoses Osteoarthritis of left shoulder M19.012
--- NOTE | 2022-02-13 09:04 | Anesthesiology Consultation ---
Date of Service February 13, 2022 Assessment & Plan (1) Encounter for pre-operative examination: Plan - check CBC with diff, BMP, coags STAT am DOS. - cardiology 08/28/21 [facility]: "...referred to the Cardiology Clinic today for evaluation of chest pain and abnormal EKG...chest discomfort started earlier this year when he was walking up an incline to attend his grandson's college graduation. Ever since then, he states he has been having constant substernal chest pressure along his left sternal border. He notes that is worse with specific movements and deep inhalation...discomfort is similar to his previous cardiac consultation in 2018 which at that time his stress echocardiogram was nonischemic...Musculoskeletal chest pain with left 3rd and 4th rib stuck in exhalation. Chronic right bundle-branch block with left axis deviation, stable...pathophysiology of his rib dysfunction was discussed with the patient his in great detail. I have given him stretching exercises to perform and instructed him on the use of a heating pad and p.r.n. analgesics over the counter. Should this not be beneficial then consideration could always be given to referral to pain management for injection. Otherwise, given his chest discomfort is completely reproducible, similar to his previous chest discomfort and I do not see any significant changes on his EKG; no further cardiac testing or intervention is necessary at this time...No cardiac follow-up will be scheduled today..." per 12/03/21 note: Patient seen at [facility] 12/03- denies chest pain or cardiopulmonary limiting complaints. - Outpatient joint assessment: Patient is currently scheduled for inpatient pathway. If re-evaluated pending system levels during current pandemic/surgeon requests outpatient pathway, patient is not acceptable candidate for outpatient joint program from anesthesia standpoint. Chart Review Chart Review: Acceptable Risk for Surgery and Patient NOT seen in Pre Admission Testing History Surgery Operation Date: 10/12/21 07:00 Proposed Procedures p Left Total Shoulder Arthroplasty Reverse - Christopher Gutierrez DO Operation Date: 01/08/22 14:20 Proposed Procedures p Left Reverse Total Shoulder Arthroplasty - Christopher Gutierrez DO Operation Date: 02/15/22 11:40 Proposed Procedures p Left Reverse Total Shoulder Arthroplasty - Christopher Gutierrez DO Height/Weight Height: 5 ft 11 in Weight: 107.5 kg Allergies Allergy/AdvReac Type Severity Reaction Status Date / Time alfuzosin Allergy Mild FAINTING Verified 02/06/22 10:53 benzalkonium chloride Allergy Mild RASH Verified 02/06/22 10:53 bimatoprost Allergy Mild RASH Verified 02/06/22 10:53 ciprofloxacin Allergy Mild CAUSED Verified 02/06/22 10:53 "FLOATERS" VISION DISTURBANCE mold Allergy Mild ITCHY EYES Verified 02/06/22 10:53 SNEEZING ASTHMA montelukast [From Singulair] Allergy Mild Agitated Verified 02/06/22 10:53 Cipro Allergy Unknown CAUSED Verified 05/20/16 09:12 "FLOATERS" VISION DISTURBANCE sulfamethoxazole AdvReac Unknown Unknown Verified 02/06/22 10:53 [From Bactrim] trimethoprim [From Bactrim] AdvReac Unknown Unknown Verified 02/06/22 10:53 Medications Home Medications Medication Instructions Recorded Confirmed Last Taken aflibercept 2 mg/0.05 mL 2 mg intravitreal UD 12/29/17 02/06/22 12/15/17 intravitreal solution for injection (Eylea) albuterol sulfate 2.5 mg/3 mL 2.5 mg inhalation UD PRN Shortness 12/29/17 02/06/22 12/28/17 (0.083 %) solution for nebulization Of Breath Or Wheezing azelastine-fluticasone 137 mcg-50 1 spray intranasal BID 12/29/17 02/06/22 12/29/17 mcg/spray nasal spray (Dymista) citalopram 40 mg tablet (Celexa) 40 mg PO QAM 12/29/17 02/06/22 12/29/17 fluticasone 500 mcg-salmeterol 50 1 puff inhalation BID 12/29/17 02/06/22 12/29/17 mcg/dose blistr powdr for inhalation fluticasone propionate 50 2 spray intranasal QAM 12/29/17 02/06/22 12/29/17 mcg/actuation nasal spray,suspension (Flonase Allergy Relief) hydrocodone 5 mg-acetaminophen 325 0.5 tab PO HS 12/29/17 02/06/22 12/28/17 mg tablet hydrocortisone acetate 25 mg 25 mg ID HS PRN Hemorrhoids 12/29/17 02/06/22 12/27/17 rectal suppository (Anucort-HC) omeprazole 20 mg capsule,delayed 20 mg PO QAM 12/29/17 02/06/22 12/29/17 release psyllium husk 3.4 gram/5.4 gram 1 tbsp PO HS PRN Constipation 12/29/17 02/06/22 12/28/17 oral powder (Metamucil) simvastatin 20 mg tablet (Zocor) 20 mg PO HS 12/29/17 02/06/22 12/28/17 vit C 250 mg-vit E 90 mg-zinc 40 1 tab PO BID 12/29/17 02/06/22 12/29/17 mg-copper 1 [id number] capsule sildenafil 100 mg tablet 100 mg PO ONCE PRN sexual activity 04/05/20 02/06/22 Unknown #12 tabs vitamin B complex (B 1 tab PO QPM 04/10/21 02/06/22 Unknown Complex-Vitamin B12 tablet) gabapentin 300 mg capsule 300 mg PO TID 10/08/21 02/06/22 Unknown albuterol sulfate 90 mcg/actuation 1 inh inhalation QID PRN SOB 11/29/21 02/06/22 Unknown aerosol inhaler brinzolamide 1 % eye 1 drp OPB BID 11/29/21 02/06/22 Unknown drops,suspension (Azopt) buspirone 5 mg tablet 5 mg PO DAILY PRN Anxiety 11/29/21 02/06/22 Unknown cyclosporine 0.09 % eye drops in a 1 drp ophthalmic (eye) Q12H PRN 11/29/21 02/06/22 Unknown dropperette (Cequa) DRY EYE fluticasone 100 mcg-salmeterol 50 1 inh inhalation BID 11/29/21 02/06/22 Unknown mcg/dose blistr powdr for inhalation (Wixela Inhub) levocetirizine 5 mg tablet 5 mg PO DAILY PRN SEASONAL 11/29/21 02/06/22 Unknown ALLERGIES losartan 25 mg tablet 25 mg PO QAM 11/29/21 02/06/22 Unknown meloxicam 7.5 mg tablet 7.5 mg PO HS 11/29/21 02/06/22 Unknown Past Medical History Medical History Actinic keratosis Anxiety Asthma Stable GERD (gastroesophageal reflux disease) Glaucoma History of BPH HTN (hypertension) Hypercholesterolemia Obesity Sleep apnea BIPAP (compliant) Trigeminal neuralgia of right side of face Chronic right sided facial ache Past Family History Family History Grandfather (Maternal) Prostate cancer Family/Other Family history of diabetes mellitus COUSIN Other No family history of adverse response to anesthesia Past Surgical History Surgical History H/O hernia repair H/O sinus surgery x2 History of cataract surgery RT/LEFT History of cholecystectomy History of colonoscopy History of esophagogastroduodenoscopy (EGD) History of prostate surgery ?TURP History of tonsillectomy History of tooth extraction History of total knee replacement RIGHT S/P ankle ligament repair LEFT Social History Smoking Status: Former smoker tobacco type: cigarettes Do You Dip or Chew Tobacco: No Smoking End Date: Quit 1999 Alcohol Use: No substance use type: does not use Testing Electrocardiogram Date: 07/11/21 Normal sinus rhythm with sinus arrhythmia at 73 bpm. LAD. RBBB. 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 Chest X-Ray Date: 07/11/21 Atherosclerotic changes of the aorta are noted. No consolidations or effusion. No acute disease. Stress Test Date: 09/15/17 Type: DSE Dobutamine stress echo is negative for inducible ischemia. LVEF 55-60%. Grade 1 diastolic dysfunction. Mild AV sclerosis. Aortic valve sclerosis involves primarily the right coronary cusp. 102% MPHR. Several isolated supraventricular ectopics were noted near peak infusion. Mild MR/TR. Proximal ascending thoracic aorta is borderline enlarged.
--- NOTE | 2022-02-14 15:58 | History & Physical Report ---
Date of Service February 14, 2022 Assessment & Plan (1) Osteoarthritis of left shoulder: We will proceed with a left reverse shoulder arthroplasty. Postoperatively he will be placed in a sling and kept overnight in the hospital for postoperative medical management. He plans to [facility] upon discharge. History of Present Illness Chief Complaint: Osteoarthritis of the left shoulder. Primary Care Provider: Erik Sadler DO Thomas Davis is a pleasant 86-year-old male who has been dealing with chronic worsening left shoulder pain. X-rays and clinicalexamination have been diagnostic for advanced osteoarthritis of the left shoulder. After failing extensive conservative treatment, he has elected to proceed with a left reverse shoulder arthroplasty.. Allergies Allergy/AdvReac Type Severity Reaction Status Date / Time alfuzosin Allergy Mild FAINTING Verified 02/06/22 10:53 benzalkonium chloride Allergy Mild RASH Verified 02/06/22 10:53 bimatoprost Allergy Mild RASH Verified 02/06/22 10:53 ciprofloxacin Allergy Mild CAUSED Verified 02/06/22 10:53 "FLOATERS" VISION DISTURBANCE mold Allergy Mild ITCHY EYES Verified 02/06/22 10:53 SNEEZING ASTHMA montelukast [From Singulair] Allergy Mild Agitated Verified 02/06/22 10:53 Cipro Allergy Unknown CAUSED Verified 05/20/16 09:12 "FLOATERS" VISION DISTURBANCE sulfamethoxazole AdvReac Unknown Unknown Verified 02/06/22 10:53 [From Bactrim] trimethoprim [From Bactrim] AdvReac Unknown Unknown Verified 02/06/22 10:53 Home Medications Medication Instructions Recorded Confirmed Type aflibercept 2 mg/0.05 mL 2 mg intravitreal UD 12/29/17 02/06/22 History intravitreal solution for injection (Eylea) albuterol sulfate 2.5 mg/3 mL 2.5 mg inhalation UD PRN Shortness 12/29/17 02/06/22 History (0.083 %) solution for nebulization Of Breath Or Wheezing azelastine-fluticasone 137 mcg-50 1 spray intranasal BID 12/29/17 02/06/22 History mcg/spray nasal spray (Dymista) citalopram 40 mg tablet (Celexa) 40 mg PO QAM 12/29/17 02/06/22 History fluticasone 500 mcg-salmeterol 50 1 puff inhalation BID 12/29/17 02/06/22 History mcg/dose blistr powdr for inhalation fluticasone propionate 50 2 spray intranasal QAM 12/29/17 02/06/22 History mcg/actuation nasal spray,suspension (Flonase Allergy Relief) hydrocodone 5 mg-acetaminophen 325 0.5 tab PO HS 12/29/17 02/06/22 History mg tablet hydrocortisone acetate 25 mg 25 mg [place] HS PRN Hemorrhoids 12/29/17 02/06/22 History rectal suppository (Anucort-HC) omeprazole 20 mg capsule,delayed 20 mg PO QAM 12/29/17 02/06/22 History release psyllium husk 3.4 gram/5.4 gram 1 tbsp PO HS PRN Constipation 12/29/17 02/06/22 History oral powder (Metamucil) simvastatin 20 mg tablet (Zocor) 20 mg PO HS 12/29/17 02/06/22 History vit C 250 mg-vit E 90 mg-zinc 40 1 tab PO BID 12/29/17 02/06/22 History mg-copper 1 bl-glnibt-jmlmed capsule sildenafil 100 mg tablet 100 mg PO ONCE PRN sexual activity 04/05/20 02/06/22 Rx #12 tabs vitamin B complex (B 1 tab PO QPM 04/10/21 02/06/22 History Complex-Vitamin B12 tablet) gabapentin 300 mg capsule 300 mg PO TID 10/08/21 02/06/22 History albuterol sulfate 90 mcg/actuation 1 inh inhalation QID PRN SOB 11/29/21 02/06/22 History aerosol inhaler brinzolamide 1 % eye 1 drp OPB BID 11/29/21 02/06/22 History drops,suspension (Azopt) buspirone 5 mg tablet 5 mg PO DAILY PRN Anxiety 11/29/21 02/06/22 History cyclosporine 0.09 % eye drops in a 1 drp ophthalmic (eye) Q12H PRN 11/29/21 02/06/22 History dropperette (Cequa) DRY EYE fluticasone 100 mcg-salmeterol 50 1 inh inhalation BID 11/29/21 02/06/22 History mcg/dose blistr powdr for inhalation (Wixela Inhub) levocetirizine 5 mg tablet 5 mg PO DAILY PRN SEASONAL 11/29/21 02/06/22 History ALLERGIES losartan 25 mg tablet 25 mg PO QAM 11/29/21 02/06/22 History meloxicam 7.5 mg tablet 7.5 mg PO HS 11/29/21 02/06/22 History Past Med/Surg History Medical History Actinic keratosis Anxiety Asthma Stable GERD (gastroesophageal reflux disease) Glaucoma History of BPH HTN (hypertension) Hypercholesterolemia Obesity Sleep apnea BIPAP (compliant) Trigeminal neuralgia of right side of face Chronic right sided facial ache Surgical History H/O hernia repair H/O sinus surgery x2 History of cataract surgery RT/LEFT History of cholecystectomy History of colonoscopy History of esophagogastroduodenoscopy (EGD) History of prostate surgery ?TURP History of tonsillectomy History of tooth extraction History of total knee replacement RIGHT S/P ankle ligament repair LEFT Family History Grandfather (Maternal) Prostate cancer Family/Other Family history of diabetes mellitus COUSIN Other No family history of adverse response to anesthesia Social History Smoking Status: Former smoker Second Hand Exposure: Yes (IN THE PAST); Hx Alcohol Use: No Preferred Language: Thai Communication Ability: Effective Hearing Ability: Use of Hearing Aid Inspector Watch Train Required: No Beliefs That Will Affect Care: None Current Living Situation: Spouse current occupational status: retired Feels Safe at Home: Yes Assistive Devices: BiPap, Glasses, Hearing Aid - Bilateral and Nebulizer Review of Systems All systems reviewed & are unremarkable except as noted in HPI & below. Physical Exam On physical examination the left shoulder, he has about 100 degrees forward elevation 60 degrees of abduction. He has crepitus throughout range of motion.. Constitutional WD/WN, vitals as above Eyes PERRL, conjunctivae normal, anicteric sclerae ENMT external ear and nose normal, oropharynx normal Neck trachea midline, no thyromegaly Respiratory normal respiratory effort, lungs clear to auscultation Cardiovascular RRR, no murmur, no edema Gastrointestinal (Abdomen) normal bowel sounds, soft, nontender, no hepatosplenomegaly Skin no rashes, warm and dry Psychiatric A+Ox3, euthymic affect Results & Data Results & Data Laboratory Results . Diagnostic Findings X-rays of the left shoulder show advanced osteoarthritis with joint space narrowing, osteophyte formation, and [id number] articulation. PG Care Time/CCT Total # of Minutes Spent Total Time Spent with Patient: Total time spent is greater than 50% in coordination of care (as documented) at patient's floor/unit and/or counseling patient: Coding Level of Care Code None Diagnoses Osteoarthritis of left shoulder M19.012
[~2022-02-15 10:21] MED LIST changes: -ACET-1256 PO; +ACETAMINOPHEN 500 MG TAB PO SCH; -ADVIN25/60 INH; -AFLI2INJ INH; -ALBUTEROL NEB INH; -ASPI81TA28 PO; -AZEL30SP NAE; +BUPIVACAINE 0.5 % 5 MG/1 ML PF 10ML VIAL ONE; -CALC500C70 PO; -CEFAZOLIN 2000 MG/60 ML D5W IV SCH; -CLX20 PO; -EYED OPB; +FAMOTIDINE 20 MG TAB PO SCH; -FERROUS SULFATE PO; -FEXO1TAB49 PO; -FLNIN NAE; +GABAPENTIN 300 MG CAP PO SCH; -HYDR-5688 PO; -HYDR25SU6 RE; -LACTATED RINGER'S 1000ML 1,000 ML IV SCH; +LR 15ML/HR IV SCH; +LR 60ML/HR IV SCH; -MULT-190 PO; -OMEP20CA9 OR; +ORTHO JOINT MIX INFIL SCH; -PSYL0.524 PO; -SILD100T PO; -SIMV20TA5 PO; +TRANEXAMIC ACID 1,000 MG **IV Intra-op IV SCH; +TRANEXAMIC ACID 1,000 MG **IV Pre-op IV SCH; +ceFAZolin 2000MG 2,000 MG/15 ML SYR IV SCH; +dexAMETHasone 4 MG TAB PO SCH
[2022-02-15] MEDS ORDERED: PROPOFOL IV EMULSION 10 MG/ML 20 ML VIAL IV ONE (10:51)
[2022-02-15] MEDS ORDERED: DEXAMETHASONE SOD INJ 4 MG/ML VIAL ONE (10:51)
[2022-02-15] MEDS ORDERED: LIDOCAINE 2% MPF LOCAL 5 ML VIAL INFIL ONE (10:51)
[2022-02-15] MEDS ORDERED: fentaNYL citrate 100 MCG/2 ML VIAL ONE ×2 (10:51→13:46)
[2022-02-15] MEDS ORDERED: MIDAZOLAM HCL 1 MG/ML 2ML VIAL ONE (10:51)
[2022-02-15] MEDS ORDERED: ONDANSETRON INJ 2 MG/ML 2 ML VIAL ONE (10:51)
[2022-02-15 11:16] LABS: Basophils # (auto) 0.04 K/uL (0-0.2); Basophils % (auto) 0.7 %; Eosinophils % (auto) 3.4 %; Immature Granulocytes # (auto) 0.01 K/uL (0.00-0.02); Immature Granulocytes % (auto) 0.2 %; Lymphocytes # (auto) 1.09 K/uL (1.2-3.4); Lymphocytes % (auto) 18.5 %; Mean Corpuscular Hemoglobin 31.6 pg (25.0-34.0); Mean Corpuscular Hgb Conc 35.1 g/dL (32.0-36.0); Mean Corpuscular Volume 89.8 fL (80.0-100.0); Mean Platelet Volume 8.5 fL (9.4-12.4); Monocytes % (auto) 11.9 %; Neutrophils # (auto) 3.86 K/uL (1.4-6.5); Neutrophils % (auto) 65.3 %; Platelet Count 199 K/uL (130-400); RDW Standard Deviation 42.8 fL (36.4-46.3); Red Blood Count 4.12 M/uL (4.63-6.08)
[2022-02-15 11:28] LABS: Partial Thromboplastin Ratio 0.9; Partial Thromboplastin Time 25.6 Seconds (21.0-31.0); Prothrombin Time 10.9 Seconds (9.0-12.0)
[2022-02-15 11:40] LABS: BUN Creatinine Ratio 22.7 (10-20); Creatinine Clr Calc Pharmacy 91.5 ml/min; Est GFR (African American) 97.6 ml/min; Est GFR (Non-African American) 84.2 ml/min
--- NOTE | 2022-02-15 12:02 | History & Physical Bridge Note ---
Date of Service February 15, 2022 History & Physical Bridge Note I have examined the patient, reviewed the History & Physical and in the interval since the performance of the History & Physical I have noted the following changes of clinical significance: no changes noted
[2022-02-15] MEDS ORDERED: HYDROmorphone INJ 2 MG/ML SYR/VIAL IV PRN (12:28)
[2022-02-15] MEDS ORDERED: ONDANSETRON INJ 2 MG/ML 2 ML VIAL IV PRN ×2 (12:28→16:01)
[2022-02-15] MEDS ORDERED: ATROPINE SULFATE 0.1 MG/ML 10ML SYR IV PRN (12:28)
[2022-02-15] MEDS ORDERED: ePHEDrine sulfate 50 MG/ML AMP IV PRN (12:28)
[2022-02-15] MEDS ORDERED: ORTHO JOINT ANESTHETIC ONE (12:32)
--- NOTE | 2022-02-15 14:33 | Operative Report ---
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 tendon I identified the patient and participated in the time-out.: Yes Procedure Operation Date: 10/12/21 07:00 <No data on this case meets the specified criteria> Operation Date: 01/08/22 14:20 <No data on this case meets the specified criteria> Operation Date: 02/15/22 12:30 Actual Procedures p Left Reverse Total Shoulder Arthroplasty(Left) with open biceps tenodesis as a distinct and separate procedure (modifier 59)- Christopher Gutierrez DO Surgeon Christopher Gutierrez DO Integration Consultant Christopher Akhtar PA-C Estimated Blood Loss 200 Findings Consistent with Post-Op Diagnosis Specimens Right humeral head Description of Procedure A CPT code modifier 59: The long head of the biceps tendon was enlarged and inflamed consistent with tendinopathy. A tenodesis was opted. This was a separate and distinct portion of the procedure. For these reasons, a CPT code modifier 59 will be added to this case. Implants used: I used a Biomet Comprehensive reverse total shoulder arthroplasty system with a size 15 press fit micro humeral stem, a standard humeral tray and a standard humeral bearing, a 25 mm small augment baseplate with a 6.5 mm central screw and superior and inferior locking screws, and a size 40 mm eccentric glenosphere. Ryan arrived at [facility] for the above procedure. He was seen in the preoperative holding area and the operative extremity was identified and signed. He was given a preoperative antibiotic, TXA, and an interscalene nerve block. He was taken back to the operating room, laid on table in supine position, and put under general anesthesia. He was then put into the beachchair position. The shoulder was then prepped and draped in sterile fashion. A timeout was done and the patient and the operative extremity was properly identified. A deltopectoral approach was used. Dissection was taken down through the fascia and the deltoid was retracted laterally and the conjoined tendon was retracted medially. The anterior shoulder was exposed. The biceps groove was opened up and the biceps tendon was examined extensively. The biceps tendon demonstrated enlargement and inflammatory changes consistent with longstanding inflammation in the context of osteoarthritis and cuff arthropathy. The long head of the biceps tendon was then tenodesed to the upper border of the pectoralis major. This was a separate and distinct portion of the procedure. The subscapularis was then directly released off the lesser tuberosity with a peel technique. The inferior capsule was released and the humeral head was dislocated. A canal finding reamer was sent down the center of the humeral canal. Sequential reaming up to a size 15 reamer was done. Off that reamer, a proximal humeral resection guide was placed. The proximal humerus was resected at 135 of inclination and 25 of retroversion. Osteophytes were then removed and the glenoid was exposed. Time was spent doing a complete capsular and labral release. The glenoid guide was then placed in the inferior aspect of the glenoid. A 3.2 mm Steinmann pin was then placed into the glenoid vault at 10 of inclination. The glenoid baseplate was then reamed. The final size 25 mm small augment baseplate was then impacted in the place. A 6.5 mm central screw was then placed followed by superior and inferior locking screws. A 40 mm eccentric glenosphere was then impacted into place. Surrounding soft tissues were then injected with 100 cc an orthopedic pain control cocktail. The proximal humerus was then exposed. Sequential broaching of the humerus up to a size 15 broach was done. Off that broach a standard humeral tray was trialed. The shoulder was then reduced, brought through a full range of motion, and felt to be stable. The shoulder was then dislocated and the broach was removed. The final size 15 standard micro press-fit humeral stem was then impacted into place. A standard humeral bearing was then snapped onto a standard humeral tray. The humeral tray was then impacted onto the humeral stem. The shoulder was once again reduced, brought through a full range of motion, and felt to be stable. The subscapularis was then tenodesed back to the lesser tuberosity with transosseous FiberWire sutures and side to side sutures with the arm in 45 of external rotation. A dilute betadyne lavage was then done for 3 minutes. The joint was then irrigated with normal saline solution. Hemostasis was obtained. The interval was closed with 2-0 Vicryl suture. The skin was then closed with 2-0 Vicryl and dina. A Silverlon dressing was placed and the arm was rested in a regular arm sling. He was then extubated and transferred to a hospital bed. He taken to the postanesthesia care unit in stable condition. He tolerated the procedure well. Christopher Akhtar PA-C, was present for the entire procedure. He was critical for patient positioning, prepping, draping, retraction exposure, wound closure and application of sterile dressing. I attest to the content of the Intraoperative Record and any orders documented therein. Any exceptions are noted below.
[2022-02-15] MEDS: fentaNYL citrate 100 MCG/2 ML VIAL IV PRN ×4 (14:48→15:18)
--- NOTE | 2022-02-15 15:23 | XRay Report ---
XR shoulder LT min 2V routine CLINICAL HISTORY: Post shoulder surgery COMPARISON STUDY: None. FINDINGS: Status post reverse left total shoulder arthroplasty. The hardware appears intact. Skin sta ples are in place. Tiny periprosthetic lucency adjacent to the tip of the humeral component. This may be due to the overlying bandage. A nondisplaced fracture could also have a similar appearance. This could be reassessed on follow-up imaging. IMPRESSION: Tiny periprosthetic lucency adjacent to the tip of the humeral component. This may be du e to the overlying bandage. A nondisplaced fracture could also have a similar appearance. This could be reassessed on follow-up imaging. ACT 112: Negative or not required by law. Electronically signed by: Keith Cutler M.D. 02/15/2022 3:21 PM
--- NOTE | 2022-02-15 15:32 | Anesthesiology Progress Note ---
Date of Service February 15, 2022 Anesthesia Post Procedure Vital Signs Vital Signs: Temp Pulse Pulse Resp BP Pulse Ox O2 Del Method 02/15/22 15:15 97.2 F L 84 17 152/85 H 96 Oxymask 02/15/22 15:05 81 18 157/91 H 97 Oxymask 02/15/22 14:55 80 17 147/84 H 96 Oxymask 02/15/22 15:26 97.2 F L 84 17 137/83 96 Oxymask 02/15/22 14:45 90 17 173/98 H 94 Oxymask 02/15/22 14:38 97.7 F 85 14 163/92 H 96 Oxymask 02/15/22 12:55 98.2 F 76 20 169/94 H 99 Room Air 02/15/22 11:12 98.2 F 74 20 143/92 H 96 Room Air O2 Flow Rate 02/15/22 15:15 3 02/15/22 15:05 3 02/15/22 14:55 3 02/15/22 15:26 3 02/15/22 14:45 4 02/15/22 14:38 5 02/15/22 12:55 02/15/22 11:12 Pain Intensity Left Shoulder: Pain Intensity: 3 Transfer of Care Handoff Completed per policy Notes Mental Status: alert / awake / arousable and participated in evaluation Patient Amnestic to Procedure: Yes Nausea / Vomiting: adequately controlled Pain: adequately controlled Airway Patency, RR, SpO2: stable & adequate BP & HR: stable & adequate Hydration State: stable & adequate Anesthetic Complications: no major complications apparent and Pt Satisfied with anesthetic care
[2022-02-15] MEDS ORDERED: ALBUTEROL 0.083% NEBU SOLN 3 ML VIAL INH PRN (16:01)
[2022-02-15] MEDS ORDERED: METOCLOPRAMIDE HCL INJ 5 MG/ML 2 ML VIAL IV PRN (16:01)
[2022-02-15] MEDS ORDERED: HYDROmorphone INJ 0.5 MG/0.5 ML SYR IV PRN (16:01)
[2022-02-15] MEDS ORDERED: bisacodyL 10 MG SUPP PR PRN (16:01)
[2022-02-15] MEDS ORDERED: ALBUTEROL HFA 8 GM INHALER INH PRN (16:01)
[2022-02-15] MEDS ORDERED: NON-FORMULARY MEDICATION (Aflibercept [Eylea] 2 mg/0.05 mL Solution) INT VIT SCH (16:01)
[2022-02-15] MEDS ORDERED: NALOXONE HCL 0.4 MG/1 ML VIAL/CARP IV PRN (16:01)
[2022-02-15] MEDS ORDERED: busPIRone 5 MG TAB PO PRN (16:01)
[2022-02-15] MEDS ORDERED: NON-FORMULARY MEDICATION (Sildenafil [Viagra] 100 mg tablet) PO PRN (16:01)
[2022-02-15] MEDS ORDERED: MAGNESIUM HYDROXIDE SUSP 30 ML UDC PO PRN (16:01)
[2022-02-15] MEDS ORDERED: HYDROCORTISONE ACETATE 25 MG SUPP PR PRN (16:01)
[2022-02-15] MEDS ORDERED: PSYLLIUM or GUAR GUM FIBER POWDER PACKET PO PRN (16:19)
[2022-02-15] MEDS: SODIUM CHLORIDE 0.9% 1000ML 1,000 ML IV SCH (16:22)
[2022-02-15] MEDS ORDERED: CETIRIZINE HCL 10 MG TABLET PO PRN (16:51)
[2022-02-15] MEDS: oxyCODONE HCL IR 5 MG TAB (IMMEDIATE RELEASE) PO PRN ×2 (19:10→23:34)
[2022-02-15] MEDS: AZELASTINE HCL 0.1% NASAL 200 SPRAYS/27,400 MCG BTL SCH (20:57)
[2022-02-15] MEDS: BRINZOLAMIDE (AZOPT) OPS 10 ML BTL OPB SCH (20:57)
[2022-02-15] MEDS: FLUTICASONE PROPIONATE NA SPR 16 GM BTL SCH (20:58)
[2022-02-15] MEDS: DOCUSATE SODIUM 100 MG CAP PO SCH (20:59)
[2022-02-15] MEDS ORDERED: CYCLOSPORINE OP PRN (21:00)
[2022-02-15] MEDS ORDERED: CYCLOSPORINE OPTHALMIC OP PRN (21:00)
[2022-02-15] MEDS: ACETAMINOPHEN 500 MG TAB PO SCH (21:00)
[2022-02-15] MEDS ORDERED: VIT C E ZN COPPR LUTEIN ZEAXAN PO SCH (21:00)
[2022-02-15] MEDS ORDERED: SIMVASTATIN 20 MG TAB PO SCH (21:00)
[2022-02-15] MEDS ORDERED: SENNA 8.6 MG TAB PO SCH (21:00)
[2022-02-15] MEDS ORDERED: GABAPENTIN 300 MG CAP PO SCH (21:00)
[2022-02-15] MEDS ORDERED: [UNRECOGNIZED DRUG - OTHER] PO SCH (21:00)
[2022-02-15] MEDS: ceFAZolin 2000MG 2,000 MG/15 ML SYR IV SCH (21:02)
[2022-02-16] MEDS: SODIUM CHLORIDE 0.9% 1000ML 1,000 ML IV SCH (02:07)
[2022-02-16] MEDS: ceFAZolin 2000MG 2,000 MG/15 ML SYR IV SCH (05:38)
[2022-02-16] MEDS: ACETAMINOPHEN 500 MG TAB PO SCH (05:38)
--- NOTE | 2022-02-16 07:24 | Orthopedic Progress Note ---
Date of Service February 16, 2022 Assessment & Plan (1) Status post reverse total replacement of left shoulder: Overall he is doing very well. He is not having much pain in the shoulder. He will be seen by physical therapy today for ambulation and range of motion exercises. He can be discharged home later today. He will follow-up with orthopedics in 2 weeks. Heber Davis was seen and examined at bedside this morning. Overall he is doing well. He is not having much pain in the left shoulder. He was able to get some sleep last night. He has no complaints.. Review of Systems All systems reviewed & are unremarkable except as noted in HPI & below. Physical Exam On physical examination of the left shoulder, the dressing is clean and dry. He is wearing his sling as instructed. He has active motion of his hand and his wrist.. Results & Data Results & Data Laboratory Results . Diagnostic Findings Postoperative x-rays of the left shoulder show the prosthesis to be in anatomic alignment without any evidence of fracture, screws, or loosening.. PG Care Time/CCT Total # of Minutes Spent Total Time Spent with Patient: Total time spent is greater than 50% in coordination of care (as documented) at patient's floor/unit and/or counseling patient: Coding Level of Care Code 97772 Post Operative Follow-Up Diagnoses Status post reverse total replacement of left shoulder Z96.612
--- NOTE | 2022-02-16 07:25 | Discharge Summary ---
Date of Service February 16, 2022 Admission HPI (Per Admitting) . Ryan is a pleasant 86-year-old male who has been dealing with chronic worsening left shoulder pain. X-rays and clinicalexamination have been diagnostic for advanced osteoarthritis of the left shoulder. After failing extensive conservative treatment, he has elected to proceed with a left reverse shoulder arthroplasty.. Admission Exam (Per Admitting) On physical examination the left shoulder, he has about 100 degrees forward elevation 60 degrees of abduction. He has crepitus throughout range of motion.. Principal Diagnosis Same as "Discharge Diagnosis" noted below under Discharge Instructions. Discharge Exam On physical examination of the left shoulder, the dressing is clean and dry. He is wearing his sling as instructed. He has active motion of his hand and his wrist.. Discharge Data Procedures Performed Operation Date: 10/12/21 07:00 <No data on this case meets the specified criteria> Operation Date: 01/08/22 14:20 <No data on this case meets the specified criteria> Operation Date: 02/15/22 12:30 Actual Procedures p Left Reverse Total Shoulder Arthroplasty(Left) - Christopher Gutierrez DO Ordered Studies 01/08/22 05:00 US - OR guided needle placemen Routine 02/15/22 05:00 US - OR guided needle placemen Routine Hospital Course (1) Status post reverse total replacement of left shoulder: On February 15, 2022 Ryan arrived at [facility] and underwent a left reverse shoulder replacement without complication. He had a general anesthetic and a left interscalene nerve block. Postoperatively he was placed in a sling and transferred to the general orthopedic floors. His hospital course was uneventful. On postop day #1, his vital signs were stable and his pain was well controlled. He was able to participate well with physical therapy doing ambul ation and range of motion exercises. He was then discharged home. He will follow with orthopedics in 2 weeks. PG Care Time/CCT Total # of Minutes Spent Total Time Spent with Patient: Total time spent is greater than 50% in coordination of care (as documented) at patient's floor/unit and/or counseling patient: Discharge Plan Discharge Items Patient Disposition: Home - Home Health Services Reason For Visit: Degenerative Joint Disease Left Shoulder Discharge Diagnosis: Left reverse shoulder replacement Activity: Per Instructions section Non-emergency contact: Surgeon Call non-emergency contact if: your wound has increased redness and your wound has increased drainage Follow-up/Referrals: Carl Strickland MD [Primary Care Provider] - Diet: Regular Addtl Attending Provider Instructions: Activity and Therapy Recommendations: * If you are using [facility] then therapy will be provided at your home until they feel you have accomplished all of your goals. * If you are using [facility] then Physical Therapy will be provided until they feel you are ready to start Outpatient Physical Therapy. * If you are not using home therapy then Outpatient Physical Therapy should start about 3-5 days from your day of surgery. Therapy will last about 8-12 weeks * Wear your sling for 3 weeks, unless otherwise instructed. You may remove your sling to shower and to dress, but otherwise, you should be in your sling at all times, including while sleeping * The shoulder replacement is very stable and you can use your hand while in the sling * You were shown a series of exercises in the hospital. Do these exercises daily including the exercises you were shown in physical therapy. Medications: * Narcotic You will likely be sent home from the hospital with a prescription for the narcotic pain medication that worked best throughout your stay. * Other medications may be prescribed for specific circumstances. If you have any questions, please call the office at . * Resume previous home medications unless otherwise instructed Dressing Care: Leave the Silverlon dressing in place for 7 days. After 7 days you may remove the dressing. If the incision is not draining then you may leave the dina open to air. If there is a little bit of drainage or if the dina are getting stuck on your clothing then cover the incision with a dry dressing. The dina will be removed at your 2 week follow-up appointment. Showering: You may shower with the Silverlon dressing in place. Do not let the shower s pray hit the dressing directly. Pat the Silverlon dressing dry. If the dressing becomes wet underneath, then simply remove the dressing. Keep the incision dry until you are 7 days out from the day of surgery. After 7 days you may remove the Silverlon dressing and shower with the dina exposed. Let soapy water run over the dina and pat them dry. Do not scrub or soak the incision. Things To Watch For: * Drainage from the incision site that occurs more than one week after your surgery. * Increased redness at the incision site. * Fever above 102 degrees Fahrenheit. * Unusual chest pain or shortness of breath. * Call [facility] at with any of the above problems Follow-Up Visit: Follow-up with Dr. Gutierrez's PA (Christopher Akhtar) 2-3 weeks after your day of surgery. He will remove your dina and answer any questions. If you have any additional questions or concerns, Dr Gutierrez is usually in the office at the same time and will be available An appointment was probably scheduled when you signed-up for surgery in the office. If you have any questions call More detailed instructions as well as Frequently Asked Questions were provided in a folder by our office when you signed-up for surgery. Please review these instructions when you get home. If you have any further questions or concerns, please feel free to call the office at [phone] Pending Studies at Discharge: No Stand-Alone Forms: My [facility] Medications and DC Order Prescriptions: New oxycodone-acetaminophen 5-325 mg tablet 1 tab PO Q6H PRN (Reason: pain) Qty: 30 0RF Continued gabapentin 300 mg capsule 300 mg PO HS vitamin B complex [B Complex-Vitamin B12] Tablet 1 tab PO QPM albuterol sulfate 2.5 mg /3 mL (0.083 %) solution for nebulization 2.5 mg Inhalation UD PRN (Reason: Shortness Of Breath Or Wheezing) citalopram [Celexa] 40 mg Tablet 40 mg PO QAM hydrocortisone acetate [Anucort-HC] 25 mg Suppository 25 mg [place] HS PRN (Reason: Hemorrhoids) simvastatin [Zocor] 20 mg Tablet 20 mg PO HS omeprazole 20 mg Capsule,Delayed Release(Dr/Ec) 20 mg PO QAM fluticasone propionate [Flonase Allergy Relief] 50 mcg/actuation [place],Suspension 2 spray INTRANASAL QAM Eylea 2 mg/0.05 mL Solution 2 mg Intravitreal UD azelastine-fluticasone [Dymista] 137-50 mcg/spray [place],Non-Aerosol 1 spray INTRANASAL BID PreserVision AREDS-2 [id number] xx-mipn-[id number]-mg capsule 1 tab PO BID Metamucil 3.4 gram/5.4 gram Powder 1 tbsp PO HS PRN (Reason: Constipation) buspirone 5 mg Tablet 5 mg PO DAILY PRN (Reason: Anxiety) brinzolamide [Azopt] 1 % Drops,Suspension 1 drp OPB BID meloxicam 7.5 mg Tablet 7.5 mg PO HS losartan 25 mg Tablet 25 mg PO QAM albuterol sulfate 90 mcg/actuation Hfa Aerosol Inhaler 1 inh INHALATION QID PRN (Reason: SOB) levocetirizine 5 mg Tablet 5 mg PO DAILY PRN (Reason: SEASONAL ALLERGIES) Cequa 0.09 % Dropperette 1 drp OPHTHALMIC (EYE) Q12H PRN (Reason: DRY EYE) fluticasone propion-salmeterol [Wixela Inhub] 100-50 mcg/dose Blister With Device 1 inh INHALATION BID sildenafil [Viagra] 100 mg tablet 100 mg PO ONCE PRN (Reason: sexual activity) Rx Instructions: administer 30 minutes to 4 hours before activity Discontinued hydrocodone-acetaminophen 5-325 mg tablet 0.5 tab PO HS Label Comments: JAW PAIN Discharge Orders: Discharge Order (Routine); Ordered 02/16/22 Ordered By: Christopher Gutierrez Admission Data Admit Date/Time: 02/15/22 14:35 Attending Provider: Christopher Gutierrez Admit Provider: Christopher Gutierrez Primary Care Provider: Carl Strickland
[2022-02-16] MEDS ORDERED: dexAMETHasone 4 MG TAB PO SCH (08:00)
[2022-02-16] MEDS: DOCUSATE SODIUM 100 MG CAP PO SCH (08:33)
[2022-02-16] MEDS: BRINZOLAMIDE (AZOPT) OPS 10 ML BTL OPB SCH (08:34)
[2022-02-16] MEDS: AZELASTINE HCL 0.1% NASAL 200 SPRAYS/27,400 MCG BTL SCH (08:34)
[2022-02-16] MEDS: FLUTICASONE PROPIONATE NA SPR 16 GM BTL SCH (08:37)
[2022-02-16] MEDS ORDERED: LOSARTAN POTASSIUM 25 MG TAB PO SCH (09:00)
[2022-02-16] MEDS ORDERED: FLUTICASONE PROPIONATE NA SPR 16 GM BTL SCH (09:00)
[2022-02-16] MEDS ORDERED: PANTOprazole 40 MG TAB PO SCH (09:00)
[2022-02-16] MEDS ORDERED: MULTIVITAMIN TAB PO SCH (09:00)
[2022-02-16] MEDS ORDERED: FLUTICASONE/VILANTEROL 100/25MCG 14 PUFFS/INHALER INH SCH (09:00)
[2022-02-16] MEDS ORDERED: CITALOPRAM 40 MG TAB PO SCH (09:00)
== END 2022-02-16 12:50 | disposition home health service (06) ==
LOC: 3N 10:21 → ASU 10:21